=== PATIENT | male | born 1975 | race African-American/Black ===

== ENCOUNTER 2018-05-07 10:32 | Emergency (ER) | payer SELFPAY ==
[~2018-05-07] VITALS: Ht 175.3 cm; Wt 89.0 kg
[2018-05-07] MEDS ORDERED: LORAZEPAM 2MG/ML CPJ IV STA (11:06)
[2018-05-07] MEDS ORDERED: SODIUM CHLORIDE 0.9% 1,000 ML IV ONE (11:06)
[2018-05-07 11:21] LABS: CLARITY URINE CLEAR (CLEAR); COLOR URINE DARK YELLOW (YELLOW); KETONES URINE 1+ (NEGATIVE); LEUKOCYTE ESTERASE URINE 1+ (NEGATIVE); NITRITE URINE NEGATIVE (NEGATIVE); OCCULT BLOOD URINE NEGATIVE (NEGATIVE); PROTEIN URINE TRACE (NEGATIVE); SPECIFIC GRAVITY URINE 1.041 (1.005-1.030)
[2018-05-07 11:25] LABS: CHLORIDE 108 mEq/L (98-107)
[2018-05-07 11:29] LABS: ETHANOL BLOOD < 10 mg/dL
[2018-05-07 11:32] LABS: BASOPHILS % 0.3 % (0.0-2.0); EOSINOPHILS % 0.5 % (0.0-5.0); HEMATOCRIT. 35.8 % (42.0-52.0); LYMPHOCYTES % 21.3 % (20.0-50.0); MEAN CORPUSCULAR HEMOGLOBIN 30.4 pg (28.0-32.0); MEAN CORPUSCULAR VOLUME 91.1 fL (80.0-94.0); MEAN PLATELET VOLUME 8.1 fl (7.4-10.4); MONOCYTES % 8.2 % (2.0-8.0); NEUTROPHILS % 69.7 % (40.0-76.0); PLATELET 220 x1000/uL (130-400); RED BLOOD CELL COUNT 3.93 mill/uL (4.7-6.1); RED CELL DISTRIBUTION WIDTH 14.5 % (11.6-14.6)
[2018-05-07 11:58] LABS: *AMPHETAMINES SCREEN URINE PRESUMTIVE POSITIVE (NEGATIVE); *BARBITURATES SCREEN URINE NEGATIVE (NEGATIVE)
[2018-05-07 11:59] LABS: *BENZODIAZEPINES SCREEN URINE NEGATIVE (NEGATIVE); *COCAINE SCREEN URINE NEGATIVE (NEGATIVE); CANNABINOID URINE SCREEN PRESUMTIVE POSITIVE (NEGATIVE); METHADONE URINE SCREEN NEGATIVE (NEGATIVE); OPIATES URINE SCREEN NEGATIVE (NEGATIVE); PHENCYCLIDINE URINE SCREEN NEGATIVE (NEGATIVE)
[2018-05-07] MEDS ORDERED: DEXTROSE 50% WATER 50ML SYRINGE IV ONE (13:15)
[2018-05-07] MEDS ORDERED: OLANZAPINE 10 MG/VIAL IM ONE (20:15)
[2018-05-07] MEDS ORDERED: HALOPERIDOL LACTATE 5MG/ML VIAL IM ONE (20:45)
[2018-05-07] MEDS ORDERED: LORAZEPAM 2MG/ML CPJ IM ONE (20:45)
[2018-05-08] MEDS ORDERED: NITROFURANTOIN 100MG M/M CAPSULE PO ONE (01:45)
[2018-05-08 10:28] VITALS: BP 119/66
== END 2018-05-08 11:01 | disposition home or self-care (01) ==
LOC: ER 10:32 → EDBD 10:32 → ER 05-08 11:01
DX: T43.621A Poisoning by amphetamines, accidental (unintentional), initial encounter (principal); R45.1 Restlessness and agitation; N30.00 Acute cystitis without hematuria; F14.10 Cocaine abuse, uncomplicated; Y92.89 Other specified places as the place of occurrence of the external cause
CPT/HCPCS: 36415; 70450; 80053; 80305; 80307; 80329; 81003; 82962; 85025; 87086; 93005; 96361; 96372; 96374; 96375; 99285; G0482; J1630; J2060; J3490; J7030; Z7610